=== PATIENT | female | born 1940 | race Caucasian/White ===

== ENCOUNTER 2016-12-02 14:08 | Emergency (ER) | payer MEDICARE ==
[~2016-12-02 14:08] MED LIST: ASPI325T32 PO; CALC-190 PO; CHOL100045 PO; ESCI5SOL PO; HYDR200T5 PO; LOV60 SUBQ; METH7.5T PO; MULT-666 PO; PRD1T PO; PRD5T PO; WARF5TAB7 PO
--- NOTE | 2016-12-02 14:10 | ED.REPORT ---
HPI-Trauma Minor / Fall Date of Service December 02, 2016 ED Provider: Dr. 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 Pt did not lose consciousness and claims that, "nothing hurts except for her arm." When medics arrived on scene pt was awake and calm, sitting on the ground , and holding her arm in place. She was able to stand and ambulate on scene. She denies dizziness, weakness, changes in speech, nausea, vomiting, visual change, head pain, and headache. Pt is on Coumadin. Nursing Notes Stated Complaint: GROUND LEVEL FALL Nursing Notes Reviewed: Yes Allergies: Coded Allergies: citalopram (Verified Allergy, Severe, Hallucinations, 06/09/16) oxycodone (Verified Allergy, Severe, vomiting, 06/09/16) Scheduled Aspirin (Aspirin) 325 Mg Tablet 81 MG PO DAILY Calcium Carb&Cit/Mag12/Vit D3 (Calcium 500 mg Tablet) 1 Each Tablet 1 EACH PO DAILY Cholecalciferol (Vitamin D3) (Vitamin D) 1,000 Unit Capsule 1,000 UNIT PO DAILY Enoxaparin (Lovenox) 60 Mg/0.6 Ml Syringe 60 MG SUBQ Q12 Escitalopram Oxalate (Lexapro) 5 Mg/5 Ml Solution 10 MG PO DAILY Hydroxychloroquine Sulfate (Hydroxychloroquine Sulfate) 200 Mg Tablet 200 MG PO BID Methotrexate Sodium (Trexall) 7.5 Mg Tablet 7.5 MG PO WEEKLY Multivitamin (Once Daily) 1 Each Tablet 1 EACH PO DAILY PredniSONE (PredniSONE) 1 Mg Tab 2 MG PO HS Prednisone (PredniSONE) 5 Mg Tab 5 MG PO QAM Warfarin Sodium (Warfarin Sodium) 5 Mg Tablet 5 MG PO DAILY Scheduled PRN Hydrocodone-Acetaminophen 5-325 mg (Hydrocodone-Acetaminophen 5-325 mg) 1 Each Tablet 1 TABLET PO Q4H PRN PRN For Pain General Time Seen by MD: 14:09 Chief Complaint Fall Hx Obtained From: Patient, EMS Arrived By: Ambulance Onset Occurred: Just prior to arrival Symptom Duration: Since onset Caused by: Accidental, Fall on ground Location: Shoulder right Quality: Painful Severity: Current: Moderate Recent Healthcare: No recent doctor visit, No recent hospitalization Similar Sx Previous: No Past Medical History Past Medical History DVT Rhematoid arthritis stroke Smoking History Unknown if Ever Smoker Social History Alcohol Use: Denies alcohol use Drug Use: Denies drug use Other Social History: Good social support, Local resident Ambulatory Status Independent Review of Systems Musculoskeletal: Reports: Extremity pain (right arm ), Extremity swelling ( right arm), Joint pain (right shoulder ), Joint swelling (right shoulder ) Neurologic: Denies: Change LOC, Dizziness, Headache, Lightheaded, Numbness, Problem walking, Slurred speech, Syncope, Weakness Complete sys rev & neg: except as marked. GI: Denies: Nausea Physical Exam Initial Vital Signs Vital Signs (First) Date Time Temp Pulse Resp B/P Pulse Ox O2 Delivery O2 Flow Rate FiO2 12/02/16 16:41 87 19 116/53 95 Room Air reviewed Initial VS: Reviewed ENT: Mucous membranes moist, Conjunctiva normal, No scleral icterus Respiratory: Breath sounds normal, Clear to auscultation, No respiratory distress Cardiovascular: Regular rate & rhythm, Heart sounds normal, Intact distal pulses Abdomen / GI: Soft, Non-tender, No guarding, No rebound, No distention Back: No CVA tenderness Lymphatic: No lymphadenopathy Neurologic: Alert, Oriented Psychiatric: Mood/affect normal, Behavior normal General/Constitutional: Awake, Alert, Cooperative Neck: Supple, No meningismus Head / Eyes: Normocephalic, PERRL 2cm hematoma anterior scalp 1cm superficial abrasion to the forehead superficial abrasion to her nose Right Shoulder: Positive: Deformity present right upper extremity shoulder deformity Interpretation & Diagnostics Lab Results Interpretation Result Diagram: 12/02/16 1400 Test 12/02/16 14:00 12/02/16 14:11 White Blood Count 6.2th/mm3 (3.8-10.1) Red Blood Count 3.60mil/mm3 (3.90-5.20) Hemoglobin 12.2g/dL (12.0-15.6) Hematocrit 37.9% (35.0-46.0) Mean Corpuscular Volume 105.3fL (81-100) Mean Corpuscular Hemoglobin 33.9pg (27.0-35.0) Mean Corpuscular Hemoglobin Concent 32.2% (32.0-37.0) Red Cell Distribution Width 14.6% (12.3-15.4) Platelet Count 235bil/L (150-400) Neutrophils (%) (Auto) 77.1% (40-74) Lymphocytes (%) (Auto) 15.9% (14-46) Monocytes (%) (Auto) 6.0% (4-12) Eosinophils (%) (Auto) 0.2% (0-5) Basophils (%) (Auto) 0.5% (0-3) Prothrombin Time 30.2sec (8.1-12.5) Prothromb Time International Ratio 2.76ratio ECG Interpretation ECG Interpretation: t-wave inversions isolated to V3 Time: 15:00 Interpreted by: ED physician Normal ECG Interpretation: Normal sinus rhythm (rate 85) X-Ray Chest Interpretation Chest Xray Interpretation: IMPRESSION: 1. Dislocated right humeral neck fracture. 2. Appearance of opacification in the right base is suspected to be artifactual secondary to overlying soft tissues secondary to rotation. If this is of clinical concern, repeat study is recommended, as effusion, consolidation or other abnormality within the lungs cannot be excluded. Dictated by: Hattie Villa M.D. on 12/02/2016 at 14:34 Approved by: Hattie Villa M.D. on 12/02/2016 at 14:37 View: Portable Interpretation / Wet Read by: Interpret - Radiologist X-Ray Interpretation Xray Interpretation: HUMERUS X-RAY IMPRESSION: 1. Displaced and angulated right humeral neck fracture of indeterminate acuity, with callus formation noted. 2. Peripheral groundglass opacities in the right lung are nonspecific and may represent pulmonary contusions in the context of trauma. Dictated by: Alphonso Rodlan M.D. on 12/02/2016 at 13:35 Approved by: Alphonso Roldan M.D. on 12/02/2016 at 13:45 X-Ray Ordered: Hand right CT Head Interpretation IMPRESSION: 1. No acute intracranial normalities. No intracranial bleed. 2. Cerebral volume loss and chronic microvascular ischemic changes. Dictated by: Cee House M.D. on 12/02/2016 at 15:00 Approved by: Cee House M.D. on 12/02/2016 at 15:03 Study: Head CT no contrast Interpretation / Wet Read by: Interpret - Radiologist Re-Eval/Medical Decision Med Decision/Clinical Course 76-year-old female with mechanical ground-level fall on Coumadin hitting head and right arm. She has a right proximal humerus fracture. Her right upper extremity is neurovascularly intact. CT head with no acute pathology. Her labs are stable. Discussed with orthopedics and they recommended sling and follow-up with them in 1 week. Sling was placed she remained neurovascularly intact right upper extremity. Her neurological exam was normal. She will be discharged home with return precautions if any weakness numbness tingling right upper extremity, worsening pain, nausea vomiting, worsening headache, confusion, any other new or worsening pain. Re-Evaluation/Progress : Time of Eval: 15:10 Re-Evaluation/Progress Note: Pt rechecked. Informed pt of x-ray results and fractured humerus. Plan for sling, discharge, and follow up with orthopedics in a week. Pt understands and agrees with plan. F/U and RTER warnings given. All questions addressed. Consultation : Referral / Consult Name: Umair Mckoy DO Consulted With: Orthopedic Call Returned at: 14:32 Real Estate Acquisition Analyst: Agrees with eval, Agrees with plan Note: Case discussed with orthopedics. Dr. Mckoy said to not attempt a reduction and follow up with orthopedics in one week as an outpatient. Wear the sling continuously. The pt should continue taking her coumadin. Pt understands and agrees with plan. F/U and RTER warnings given. All questions addressed. Counseled Regarding: Diagnosis, Lab results, Need for follow-up, When/why to return to ED Discharge & Departure Impression: Primary Impression: Head trauma Encounter type: initial encounter Qualified Code: S09.90XA - Unspecified injury of head, initial encounter Additional Impression: Humerus fracture Encounter type: initial encounter Humerus Location: proximal Fracture type : closed Fracture morphology: unspecified fracture morphology Laterality: right Qualified Code: S42.201A - Unspecified fracture of upper end of right humerus, initial encounter for closed fracture Disposition: Home Discharge Condition All VS Reviewed: Yes Condition: Stable Patient Instructions: Proximal Humerus Fracture (ED) Additional Instructions: Thank you for entrusting us with your care today. You have fractured your humerus. I have talked to with Dr. Umair Mckoy in orthopedics and he advises that you return home and make a follow up appointment in one week. Keep the sling loose enough that your arm is hanging down at all times. Do not hesitate to return to the Emergency Department for any right upper extremity weakness, numbness, tingling, shortness of breath, lightheadedness, dizziness, vomiting, difficulty speaking or swallowing, worsening headache or pain. I hope your recovery moves swiftly. Enjoy the sunshine today! Referrals: Sabiha Lane (PCP) Scribe Attestation Portion of this note were transcribed by Rosa Goodwin. I, Dr. Joseph, personally performed the history, physical exam, and medical decision-making: I reviewed and confirmed the accuracy for the information in the transcribed note. Signed by: darwin Hewitt, 12/02/16 1600 copies to: Sabiha Lane Ben M MD December 02, 2016 14:10 Rosa Goodwin December 02, 2016 14:19
[2016-12-02] MEDS ORDERED: TdaP Vaccine 0.5 mL Inj IM ONE (14:20)
[2016-12-02 14:28] LABS: BASOPHILS % (AUTO) 0.5 % (0-3); EOSINOPHILS % (AUTO) 0.2 % (0-5); Mean Corpuscular Hemoglobin 33.9 pg (27.0-35.0); Mean Corpuscular Volume 105.3 fL (81-100); NEUTROPHILS % (AUTO) 77.1 % (40-74); Platelet Count 235 bil/L (150-400)
--- NOTE | 2016-12-02 14:38 | DRSVH ---
PROCEDURE: X-RAY CHEST ONE VIEW, PORTABLE ([id number]) INDICATIONS: trauma TECHNIQUE: One view of the chest was acquired. COMPARISON: [facility], CR, XR HUMERUS 2VW RT, 12/02/2016, 14:07. FINDINGS: Surgical changes and devices: None. Lungs and pleura: The patient is significantly rotated, with an appearance of opacification in the ri ght base. Mediastinum: Mediastinal contours appear normal. Heart size is normal. Bones and chest wall: No suspicious bony lesions. Overlying soft tissues appear unremarkable. Ther e is a dislocated right humeral neck fracture. Distal clavicles are poorly evaluated secondary to ove rlying material. IMPRESSION: 1. Dislocated right humeral neck fracture. 2. Appearance of opacification in the right base is suspected to be artifactual secondary to overlyi ng soft tissues secondary to rotation. If this is of clinical concern, repeat study is recommended, a s effusion, consolidation or other abnormality within the lungs cannot be excluded. Dictated by: Hattie Villa M.D. on 12/02/2016 at 14:34 Approved by: Hattie Villa M.D. on 12/02/2016 at 14:37
[2016-12-02] MEDS: HYDROmorphone 1 mg/mL Inj IVPUSH PRN ×2 (14:40→15:30)
--- NOTE | 2016-12-02 14:47 | DRSVH ---
PROCEDURE: X-RAY RIGHT HUMERUS, MINIMUM TWO VIEWS ([id number]) INDICATIONS: trauma TECHNIQUE: 3 views of the humerus were acquired. COMPARISON: None. FINDINGS: Bones: There is a right humeral neck fracture with medial displacement of the distal component as wel l as mild impaction and lateral angulation. There is some callus formation demonstrated. Visualized ribs appear intact. Soft tissues: There are peripheral groundglass opacities in the right lung with a basilar predominan ce. IMPRESSION: 1. Displaced and angulated right humeral neck fracture of indeterminate acuity, with callus formatio n noted. 2. Peripheral groundglass opacities in the right lung are nonspecific and may represent pulmonary co ntusions in the context of trauma. Dictated by: Alphonso Roldan M.D. on 12/02/2016 at 13:35 Approved by: Alphonso Roldan M.D. on 12/02/2016 at 13:45
[2016-12-02 14:55] LABS: INR 2.76 ratio
--- NOTE | 2016-12-02 15:04 | DRSVH ---
PROCEDURE: CT BRAIN WITHOUT CONTRAST ([id number]) INDICATIONS: head trauma on coumadin TECHNIQUE: Noncontrast 4.5 mm thick angled axial sections acquired from the foramen magnum to the vertex, with c oronal reformats. COMPARISON: None. FINDINGS: Image quality: Excellent. CSF spaces: Basal cisterns are patent. No extra-axial fluid collections. The ventricles are symmet mariaa in size and shape. Brain: No intracranial bleeds or masses. There is moderate cerebral volume loss for age, with resul tant ventricular and sulcal prominence. There are periventricular and deep white matter chronic smal l vessel ischemic changes. Suspect old infarct in the left valdez radiata. There is intracranial inte rnal carotid artery atherosclerosis. Skull and face: Calvarium and visualized facial bones appear intact, without suspicious lesions. Sinuses: Visualized sinuses and mastoids are clear. IMPRESSION: 1. No acute intracranial abnormalities. No intracranial bleed. 2. Cerebral volume loss and chronic microvascular ischemic changes. Dictated by: Cee House M.D. on 12/02/2016 at 15:00 Approved by: Cee House M.D. on 12/02/2016 at 15:03
[2016-12-02] MEDS ORDERED: HYDR-4003 PO (15:18)
[2016-12-02 16:41] VITALS: BP 116/53; PULSE 87; RESP 19; O2SAT 95
[2016-12-05] MEDS ORDERED: ONDA4TAB6 PO (09:47)
[2016-12-05] MEDS ORDERED: ESCI10TA3 PO (09:47)
[2016-12-05] MEDS ORDERED: HYDR-3740 PO (09:47)
[2016-12-05] MEDS ORDERED: CALC-51 PO (09:47)
== END 2016-12-02 16:44 | disposition home or self-care (01) ==
LOC: SED 14:08
DX: S00.03XA Contusion of scalp, initial encounter (principal); S42.291A Other displaced fracture of upper end of right humerus, initial encounter for closed fracture; S00.81XA Abrasion of other part of head, initial encounter; S00.31XA Abrasion of nose, initial encounter; W01.10XA Fall on same level from slipping, tripping and stumbling with subsequent striking against unspecified object, initial encounter; Y92.512 Supermarket, store or market as the place of occurrence of the external cause; Y93.89 Activity, other specified; Y99.8 Other external cause status; Z86.718 Personal history of other venous thrombosis and embolism; Z86.73 Personal history of transient ischemic attack (TIA), and cerebral infarction without residual deficits; Z79.01 Long term (current) use of anticoagulants; Z79.82 Long term (current) use of aspirin; Z23 Encounter for immunization; Z88.8 Allergy status to other drugs, medicaments and biological substances; Z88.5 Allergy status to narcotic agent
CPT/HCPCS: 36415; 70450; 71010; 73060; 85025; 85610; 90471; 90715; 90791; 93005; 96374; 96376; 99285; J1170

== ENCOUNTER 2016-12-10 10:37 | Day surgery (SDC) | payer MEDICARE ==
[~2016-12-10] VITALS: Ht 152.4 cm; Wt 56.6 kg
[2016-12-10] VITALS (9 sets, daily range): BP systolic 99–134; BP diastolic 51–76; PULSE 84–93; RESP 16–23; O2SAT 88–100
[~2016-12-10 10:37] MED LIST changes: -ASPI325T32 PO; -CALC-190 PO; +CALC-51 PO; +CeFAZolin Inj 2 GM in IV Premix 1 EACH IV ONE; +ESCI10TA3 PO; -ESCI5SOL PO; +HYDR-3740 PO; -LOV60 SUBQ; +Lactated Ringer's 1,000 ML IV ONE; +ONDA4TAB6 PO; -PRD1T PO; -PRD5T PO
[2016-12-10] MEDS ORDERED: CeFAZolin Inj 2 gm / 50mL D5W IV ONE (10:48)
[2016-12-10] MEDS ORDERED: Lactated Ringer's 1,000 ML IV ONE (11:00)
[2016-12-10] MEDS ORDERED: fentaNYL-PF 50 mCg/mL 2 mL Inj ONE ×2 (11:18→16:22)
[2016-12-10] MEDS ORDERED: PRD5T PO (11:34)
[2016-12-10] MEDS ORDERED: PRD1T PO (11:34)
[2016-12-10 12:29] LABS: INR 1.01 ratio
--- NOTE | 2016-12-10 13:31 | PCM.HPANE ---
Patient Data Date of Service: December 10, 2016 ([id number]) Surgeon Admitting Provider: Attending Provider:Umair Mckoy DO Primary Care Physician:Sabiha Lane Other Provider:Anibal Rodriguez Anesthesia Reason for Visit Right Proximal Humerus Fracture RIGHT PROXIMAL HUMERUS FRACTURE Ht/WT & BMI Height (Feet): 5 Height (Inches): 0 Weight (Kilograms): 60.328 Body Mass Index 26.00 Allergies Coded Allergies: citalopram (Verified Adverse Reaction, Severe, Hallucinations, 12/05/16) oxycodone (Verified Adverse Reaction, Severe, vomiting, 12/05/16) Past Anesthesia History Anesthesia History: Denies:: Abnormal Airway, Anesthesia Reactions, Difficult Intubation, Fam Anesthesia Reaction, Fam Malignant Hypertherm, Malignant Hyperthermia Diabetes History Hx Diabetes?: No MRSA MRSA: No Medications Blood Thinner: Coumadin Hypertension Medication: No Home Meds Incl Beta Lobo: No Active Scripts Warfarin Sodium 5 Mg Tablet5 Mg PO DAILY 30 Days Ref 0 Prov:Odin Miller PAC 06/09/16 Reported Medications PredniSONE 1 Mg Tab2 Mg PO HS Ref 0 12/10/16 Prednisone (PredniSONE)5 Mg Tab5 Mg PO DAILY Ref 0 12/10/16 Escitalopram Oxalate (Lexapro)10 Mg [id number] Mg PO DAILY 30 Days Ref 0 12/05/16 Calcium Carbonate/Vitamin D3 (Calcium 500 + Vit D 400 Tablet)1 Each Tablet1 Each PO DAILY 12/05/16 Ondansetron (Zofran)4 Mg Tablet4-8 Mg PO Q8H PRN For Nausea 12/05/16 Hydrocodone-Acetaminophen 10-325 mg 1 Each Tablet1 Tablet PO Q4H PRN For Pain Ref 0 12/05/16 Cholecalciferol (Vitamin D3) (Vitamin D)1,000 Unit Capsule1,000 Unit PO DAILY # 1 BOTTLE Ref 0 05/07/16 Methotrexate Sodium (Trexall)7.5 Mg Tablet7.5 Mg PO WEEKLY 05/07/16 Multivitamin (Once Daily)1 Each Tablet1 Each PO DAILY 05/07/16 Hydroxychloroquine Sulfate 200 Mg [id number] Mg PO BID #30 TABLET Ref 0 05/07/16 Discontinued Reported Medications Prednisone (PredniSONE)5 Mg Tab5 Mg PO QAM Ref 0 05/07/16 PredniSONE 1 Mg Tab2 Mg PO HS Ref 0 05/07/16 Escitalopram Oxalate (Lexapro)5 Mg/5 Ml [id number] Mg PO DAILY #1 BOTTLE Ref 0 05/07/16 Calcium Carb&Cit/Mag12/Vit D3 (Calcium 500 mg Tablet)1 Each Tablet1 Each PO DAILY 05/07/16 Aspirin 325 Mg [id number] Mg PO DAILY #1 BOTTLE 05/07/16 Discontinued Scripts Hydrocodone-Acetaminophen 5-325 mg 1 Each Tablet1 Tablet PO Q4H PRN For Pain # 20 TABLET Prov:Parker Joseph MD 12/02/16 Enoxaparin (Lovenox)60 Mg/0.6 Ml [id number] Mg SUBQ Q12 5 Days Ref 0 Prov:Odin Miller PAC 06/09/16 History History of ENT Problems?: Yes HEENT History: Positive for:: Cataracts Denies:: Abnormal Airway Difficult Intubation Hearing Problem Denture Type: None Teeth Condition: Within Normal Limits Hx of Heart Problems?: Yes Cardiovascular History: Positive for:: Hypertension Thrombophlebitis (HX DVT'S (RESULTANT CVA) LAST NOTED RUE) Denies:: AICD Abdominal Aortic Aneurism Atrial Fibrillation Cardiac Surgery Chest Pain Congestive Heart Failure Coronary Artery Disease Edema Heart Murmur (ECHO 09/2011 EF 55%) Irregular Heartbeat Pacemaker Peripheral Vascular Rheumatic Fever Valvular Heart Disease Other Cardiac History: HX IRON DEFICIENCY ANEMIA Hx of Respiratory Problem?: No Respiratory History: Denies:: Asthma COPD Chest Surgery Cough Dyspnea Emphysema Hemoptysis Oxygen Administration Pneumonia Pulmonary Embolism Tuberculosis Use of C-PAP Machine Use of Inhalers / NEBS Hx Neurologic Problems?: Yes Neurological History: Positive for:: CVA (1991 DVT ?R/T HORMONE THERAPY ANTICOAGULATION) Headaches Denies:: Alzheimer's Disease Dementia Dizziness Multiple Sclerosis Parkinson's Disease Peripheral Neuropathy Seizures TIA Other Neurological Pertinent: GLF-STRIKING HEAD/NO LOC Hx of GI Problems?: Yes Gastrointestinal History: Denies:: Cirrhosis Diverticulitis Gall Bladder Disease Gastroesphageal Reflux Gastrointestinal Bleeding Heartburn Hepatitis Hiatal Hernia Liver Disease Rectal Bleeding Other GI Pertinent History: HX PARTIAL SBO Hx of Problems?: Yes Genitourinary History: Denies:: HX of Hemodialysis Kidney Stones Urinary Tract Infection HX of Peritoneal Dialysis: No Other Pertinent History: S/P CYSTO, INTERNAL URETHROTOMY Female Hx: Denies:: Currently Endometriosis Pelvic Inflammatory Problems with Breasts? Skin History: Positive for:: History Skin Disorders? (DERMATOFIBROSARCOMA- NAILS) Pressure Ulcers (HX B/L LL ULCERS S/P DEBRIDEMENT CHRONIC LT LEG ULCER ) Hx Musculoskeletal Problems?: Yes Musculoskeletal History: Positive for:: Musculoskeletal Trauma (S/P ORIF 5TH RT TOE RT PROXIMAL HUMERUS FX=CURRENT PROBLEM) Rheumatoid Arthritis Denies:: Back Injury Degenerative Joint Fibromyalgia Joint Replacement Myasthenia Gravis Osteoarthritis (OSTEOPOROSIS) Systemic Lupus Hx of Psycho/Social Problems?: Yes Psycho Social History: Positive for:: Anxiety Denies:: Bipolar Disorder Hx Depression Suicide Attempt Hx Surgeries?: Yes (HYST,LUMBAR FUSION,BUNIONECTOMY,ORIF 5TH RT TOE,CYSTO/ URETHROYOMY,LLE ULCER) Hx Any Other Health Problems?: Yes Other History: Positive for:: Cancer (DERMATOFIBROSARCOMA-NAILS) Hospitalization (multiple minor events) Denies:: Endocrine Disease Thyroid Disease History Blood Transfusions: Denies:: Accept Blood Products? Blood Transfuse Reaction Blood Transfusions Hx Diabetes: No Hx Alcohol Use: NoHx Substance Use: No Smoking Status: Unknown if Ever Smoker Have You Smoked inLast 12 mo: No Stop/Bang S-Snoring: Do You Snore Loudly: No T-Tired: feel tired, fatigued: No O-Obsered: Observed not breath: No P-Blood Pressure: treated: Yes B- Body Mass Index > 35 kg/m2: No A- Age over 50: Yes N- Neck Large Circumference: No G- Gender Male: No GEORGIE Total Score: 2 Risk Assessment Category Category 1A: Patient has history of documented sleep apnea, and HAS NOT received any narcotic, sedative or anesthesia administration during this stay. Category 1B: Patient has history of documented sleep apnea, and HAS received any narcotic , sedative or anesthesia administration during this stay Category 2: Patient has SUSPECTED Obstructive Sleep Apnea, and HAS received any narcotic , sedative or anesthesia administration during this stay. Category 3: Patient has SUSPECTED Obstructive Sleep Apnea and HAS NOT received narcotic, sedative or anesthesia administration during this stay. Category 4: Outpatient in Procedural Areas with known sleep apnea or who screen positive for High Risk via the STOP/BANG questionnaire. Exam Exam Vital Signs Vital Signs Date Time Temp Pulse Resp B/P Pulse Ox O2 Delivery O2 Flow Rate FiO2 12/10/16 11:13 36.6 84 16 127/60 97 Room Air General Appearance: Alert, Oriented X3, Cooperative, Moderate Distress (Right arm pain) HEENT/AIRWAY: MP 2, Neck Movement (FROM), Mouth Opening (3 FBMO) Lungs: Clear to Auscultation, Normal Air Movement Heart: Exam Unremarkable, Regular Rate/Rhythm, No Murmurs/Rubs/Gallops Meds/Labs/Diagnostics Labs Test 12/10/16 11:57 Prothrombin Time 10.8sec (8.1-12.5) Prothromb Time International Ratio 1.01ratio Plan Impression Patient chart reviewed, patient interviewed and anesthestic plan with risks, benefits, and alternatives discussed, and informed consent obtained. NPO per Anesth. Guidelines: Yes ASA Physical Status: ASA3 Severe Disease (h/o CVA) Anesthetic Plan: GA, Regional Block Bene/Risks/Altern/Consents: Yes HP Complete Prior to Induction: Yes (Right supraclavicular block discussed, risks addressed, consent signed.) Umair Burrell MD December 10, 2016 13:31
[2016-12-10] MEDS ORDERED: Lactated Ringer's 500 ML IV PRN (13:32)
[2016-12-10] MEDS ORDERED: Lactated Ringer's 1,000 ML IV SCH (13:32)
[2016-12-10] MEDS ORDERED: EPHEDrine Sulfate 50 mg/mL Inj IVPUSH PRN (13:35)
[2016-12-10] MEDS ORDERED: Labetalol 5 mg/mL 4 mL Inj IV PRN (13:35)
[2016-12-10] MEDS ORDERED: Phenylephrine 10,000 mCg/mL Inj IVPUSH PRN (13:35)
[2016-12-10] MEDS ORDERED: fentaNYL-PF 50 mCg/mL 2 mL Inj IVPUSH PRN (13:35)
[2016-12-10] MEDS ORDERED: Atropine 0.4 mg/mL Inj IVPUSH PRN (13:35)
[2016-12-10] MEDS ORDERED: MetoCLOpramide 5 mg/mL 2 mL Inj IVPUSH PRN (13:35)
[2016-12-10] MEDS ORDERED: Ondansetron 2 mg/mL 2 mL Inj IVPUSH PRN ×2 (13:35→15:20)
[2016-12-10] MEDS ORDERED: Lidocaine 2%-Epi 1:100,000 20 mL Inj INFILTRATE ONE (13:41)
[2016-12-10] MEDS ORDERED: Acetaminophen IV 1,000 MG in IV Premix 1 EACH IV ONE (15:20)
[2016-12-10] MEDS ORDERED: Magnesium Hydroxide 10 mL Oral Concentration PO PRN (15:20)
[2016-12-10] MEDS ORDERED: Polyethylene Glycol (PEG) 17 Gm Powder PO PRN (15:20)
[2016-12-10] MEDS ORDERED: diphenhydrAMINE 25 mg Capsule PO PRN (15:20)
--- NOTE | 2016-12-10 16:00 | OP ---
[address] [address] OPERATIVE REPORT PATIENT: PARISH LOZANO : 1940 MR#: [id number] ADMIT: 12/10/2016 JOB ID: [id number] DATE OF SURGERY: 12/10/2016 PREOPERATIVE DIAGNOSIS(ES): Right proximal humerus fracture. POSTOPERATIVE DIAGNOSIS(ES): Right proximal humerus fracture. PROCEDURE: Right proximal humerus open reduction and internal fixation. SURGEON: Umair Mckoy D.O. ASSISTING: Rita Yap PA-C INDICATIONS: The patient is a 76-year-old female who fell onto a concrete page at [employer] sustaining a right proximal humerus fracture with significant displacement. We discussed treatment options for this and she wished to proceed with a right proximal humerus open reduction and internal fixation. We discussed risks, benefits, and possible complications of surgery including, but not limited to injury to nerves and vessels, infection, bleeding, incomplete relief of symptoms, stiffness, need for additional procedures. The patient had good understanding. All questions were answered. She wished to proceed. A retail administrative assistant was required for the successful completion of this procedure. PROCEDURE IN DETAIL: The patient was brought to the operating room. She was given a preoperative antibiotic and general anesthetic as well as interscalene block. The right upper extremity was sterilely prepped and draped. An incision was made centered over the coracoid process for deltopectoral approach. Dissection was carefully carried through to the subcutaneous tissue. Electrocautery was used for hemostasis. The deltopectoral interval was identified and blunt dissection was used to open up the space. Then, a Hohmann retractor was placed over the humeral head. The conjoined tendon was identified and the Kobel retractor was placed. The upper 25% of the pectoralis was released in order to gain exposure and the fracture was encountered. The wound was irrigated and debrided. I did not wish to disturb the fracture too much and placed a stay suture into the rotator cuff in order to facilitate movement of the cuff and then manually manipulated the fracture in order to affect reduction. She was noted to have some bleeding in the posterior distal aspect of the wound in the arm and I explored this briefly. However, it was very close to the axillary nerve and I was concerned by this and, therefore, packed this area of bleeding with some Surgicel and then continued with the case. Placed a two hole Synthes proximal humerus locking plate, secured this to the proximal humerus making sure to have proper orientation with biplane fluoroscopy. Once I had secured this to the head and was happy with the position and placed a couple of locking screws into the head, I then worked to reduce the shaft to the head fragment. The shaft was secured with two 35 cortex screws as well as a locking screw in order to get good reduction. The remainder of the head screws were then placed making sure that they were unicortical and did not enter the joint space. Biplane fluoroscopy was used to confirm reduction which was acceptable. The wound was then irrigated. I then added some #2 FiberWire sutures to repair the rotator cuff to the superior holes of the plate to add additional fixation. I considered doing a biceps tenodesis but did not wish to compromise the blood supply in any way further then it was. Therefore, I decided to leave the biceps intact. The wound was then irrigated and closed with interrupted 2-0 Vicryl for the deep layers, 3-0 for the subcu and the skin was closed with interrupted 4-0 nylon mattress sutures. Sterile dressings were applied. Patient tolerated the procedure well. Blood loss was 300 cc. POSTOPERATIVE PROTOCOL: Have the patient maintain her arm sling for six weeks. She may begin range of motion of her wrist, fingers, hand and elbow to some degree and remove the dressing in three or four days. We will have her resume her Coumadin for DVT prophylaxis as well as a dose of Lovenox. [facility]
[2016-12-10] MEDS ORDERED: Phenylephrine/NS 100 mCg/mL 10 mL Syringe IVPUSH ONE (16:22)
[2016-12-10] MEDS ORDERED: Rocuronium 10 mg/mL 5 mL Inj ONE (16:22)
[2016-12-10] MEDS ORDERED: Propofol 10,000 mCg/mL 20 mL Inj ONE (16:22)
[2016-12-10] MEDS ORDERED: Ondansetron 2 mg/mL 2 mL Inj ONE (16:22)
[2016-12-10] MEDS ORDERED: MetoCLOpramide 5 mg/mL 2 mL Inj ONE (16:22)
[2016-12-10] MEDS: Sodium Chloride LOK Flush 10 mL Syringe IV SCH (16:30)
[2016-12-10] MEDS ORDERED: HYDROmorphone 0.5 mg/0.5 mL iSecure Syringe IVPUSH PRN (16:30)
[2016-12-10] MEDS: 0.9% Sodium Chloride 1,000 ML IV SCH (16:32)
--- NOTE | 2016-12-10 17:47 | NUR ---
Denise Oliva DO to confirm keep SP02 88-92% and provide supplemental oxygen as needed.
--- NOTE | 2016-12-10 18:54 | PCM.ANEP1 ---
Post Anesthesia PACU Phase 1 Assessment Vital Signs Vital Signs Date Time Temp Pulse Resp B/P Pulse Ox O2 Delivery O2 Flow Rate FiO2 12/10/16 16:24 Supplement Oxygen 12/10/16 16:10 36.4 93 16 120/74 99 Nasal Cannula 2.00 12/10/16 15:52 93 18 114/66 97 Nasal Cannula 3 12/10/16 15:46 90 22 117/51 95 Nasal Cannula 3 12/10/16 15:38 89 22 110/52 88 Room Air 12/10/16 15:30 86 23 110/55 100 Simple Mask 10 12/10/16 15:25 86 23 132/58 100 Simple Mask 10 12/10/16 15:21 36.5 87 23 134/76 100 Simple Mask 10 12/10/16 11:13 36.6 84 16 127/60 97 Room Air Anesthetic Administered: GA Level of Alertness: Awake, talking HERNANDEZ's with Equal Strength: Yes Pain: No Nausea or Vomiting: No CV Function & Hydration Stable: Yes Airway Device: Oxygen Delivery: Room Air Lungs: Clear to Auscultation, Normal Air Movement Dermatome Level: Full Sensation PACU Phase 2 Assessment Complications: No Follow up Care: N/A Patient Instructions Provided: N/A Umair Burrell MD December 10, 2016 18:54
[2016-12-10] MEDS ORDERED: predniSONE 1 mg Tablet PO SCH (21:00)
[2016-12-10] MEDS: Hydroxychloroqine 200 mg Tablet PO SCH (21:21)
[2016-12-10] MEDS: Senna-Docusate 8.6-50 mg Tablet PO SCH (21:22)
[2016-12-10] MEDS: HYDROcodone-APAP 7.5-325 mg Tablet PO PRN (21:22)
[2016-12-10] MEDS: CeFAZolin Inj 2 GM in IV Premix 1 EACH IV SCH (21:26)
[2016-12-10 23:53] LABS: APPEARANCE,URINE CLEAR (CLEAR,HAZY); COLOR,URINE YELLOW (YELLOW); OCCULT BLOOD,URINE TRACE (NEGATIVE); PH,URINE 5.5 (5.0-8.0); UROBILINOGEN,URINE NORMAL (NORMAL)
[2016-12-11] MEDS: Sodium Chloride LOK Flush 10 mL Syringe IV SCH ×2 (00:30→08:02)
[2016-12-11 00:55] VITALS: BP 110/64; PULSE 69; RESP 18; O2SAT 100
[2016-12-11] MEDS: 0.9% Sodium Chloride 1,000 ML IV SCH (01:17)
[2016-12-11] MEDS: HYDROcodone-APAP 7.5-325 mg Tablet PO PRN ×4 (01:18→09:54)
[2016-12-11] MEDS: CeFAZolin Inj 2 GM in IV Premix 1 EACH IV SCH (04:41)
--- NOTE | 2016-12-11 04:51 | NUR ---
Activity/Pain Pt reports pain 5/10, 7/10. Rec'd PRN pain meds with + effects. Pt with sling to right arm, tolerating well. Neuro's intact, numbness/tingling has resolved. Pt is 1 person SBA to BR and has steady gait. Tolerating PO fluids and solids, IV converted to SL.
[2016-12-11 05:04] VITALS: BP 99/60; PULSE 70; RESP 16; O2SAT 91
[2016-12-11] MEDS: hydrOXYzine Pamoate 25 mg Capsule PO PRN ×2 (05:17→09:55)
[2016-12-11 05:53] LABS: BASOPHILS % (AUTO) 0.1 % (0-3); EOSINOPHILS % (AUTO) 0 % (0-5); MONOCYTES % (AUTO) 6.1 % (4-12); Mean Corpuscular Hemoglobin 33.7 pg (27.0-35.0); Mean Corpuscular Volume 107.2 fL (81-100); NEUTROPHILS % (AUTO) 87.7 % (40-74); Platelet Count 242 bil/L (150-400)
[2016-12-11 07:57] VITALS: BP 111/77; PULSE 68; RESP 18; O2SAT 100
[2016-12-11] MEDS ORDERED: Calcium Carbonate (Oyster Shell) 500 mg Tablet PO SCH (08:00)
[2016-12-11] MEDS: Senna-Docusate 8.6-50 mg Tablet PO SCH (08:00)
[2016-12-11] MEDS: Hydroxychloroqine 200 mg Tablet PO SCH (08:02)
--- NOTE | 2016-12-11 08:09 | PCM.PNORTH ---
Subjective Date of Service: December 11, 2016 Visit Information: Reason for Visit Right Proximal Humerus Fracture Surgery/Surgery Date R HUMERUS ORIF 12/10/16 Post-Op Day # 1 Date of Admission: December 10, 2016 at 16:21 Hospital Day # Subjective Patient reports pain is well controlled with hydrocodone. She denies any tingling or numbness. Her is at bedside. Postop General: No Shortness of Breath, No Chest Pain, Good Appetite Pain Management: PO Objective Exam Objective Patient is seen sitting up in bed. Her is at bedside Vital Signs and I/O Vital Sign - Last Date Time Temp Pulse Resp B/P Pulse Ox O2 Delivery O2 Flow Rate FiO2 12/11/16 07:57 36.7 68 18 111/77 100 Nasal Cannula 2.00 Intake and Output 12/10/16 12/10/16 12/11/16 Cumulative From/Thru 15:00 23:00 07:00 12/05/16 09:48 - 12/11/16 06:22 Intake Total 750 ml 525 ml 1528 ml 2803 ml Output Total 300 ml 1010 ml 1310 ml Balance 450 ml 525 ml 518 ml 1493 ml Intake Oral 300 ml 600 ml 900 ml IV Total 750 ml 225 ml 928 ml 1903 ml Output Urine Total 1010 ml 1010 ml Estimated Blood Loss 300 ml 300 ml # Voids 1 1 # Bowel Movements 0 0 Lab & Micro Results Laboratory Tests Test 12/10/16 11:57 12/10/16 23:17 12/11/16 05:00 Prothrombin Time 10.8sec (8.1-12.5) Prothromb Time International Ratio 1.01ratio Urine Color Yellow (YELLOW) Urine Appearance Clear (CLEAR,HAZY) Urine pH 5.5 (5.0-8.0) Urine Specific [place] 1.023 (1.003-1.035) Urine Protein Negativemg/dL (NEG,TRACE) Urine Glucose (UA) 100mg/dL (NEGATIVE) Urine Ketones 15mg/dL (NEGATIVE) Urine Occult Blood Trace (NEGATIVE) Urine Nitrite Negative (NEGATIVE) Urine Bilirubin Negative (NEGATIVE) Urine Urobilinogen Normalmg/dL (NORMAL) Urine Leukocyte Esterase Negative (NEGATIVE) Urine RBC 0-2/hpf (0-2) Urine WBC 0-5/hpf (0-5) Urine Epithelial Cells Moderate/hpf (NONE-MOD) Urine Crystals None seen (NONE SEEN) Urine Bacteria None/hpf (NONE-FEW) Urine Hyaline Casts None/lpf (NONE) Urine Granular Casts None seen (NONE SEEN) Urine Waxy Casts None seen (NONE SEEN) Urine Red Blood Cell Casts None seen (NONE SEEN) Urine White Blood Cell Casts None seen (NONE SEEN) Urine Mucus None seen (None Seen) Urine Trichomonas None seen (NONE SEEN) Urine Yeast None (NONE SEEN) Urine Culture Reflexed Not indicated White Blood Count 7.0th/mm3 (3.8-10.1) Red Blood Count 2.64mil/mm3 (3.90-5.20) Hemoglobin 8.9g/dL (12.0-15.6) Hematocrit 28.3% (35.0-46.0) Mean Corpuscular Volume 107.2fL (81-100) Mean Corpuscular Hemoglobin 33.7pg (27.0-35.0) Mean Corpuscular Hemoglobin Concent 31.4% (32.0-37.0) Red Cell Distribution Width 14.6% (12.3-15.4) Platelet Count 242bil/L (150-400) Neutrophils (%) (Auto) 87.7% (40-74) Lymphocytes (%) (Auto) 5.8% (14-46) Monocytes (%) (Auto) 6.1% (4-12) Eosinophils (%) (Auto) 0% (0-5) Basophils (%) (Auto) 0.1% (0-3) Sodium Level 139mEq/L (134-144) Potassium Level 4.8mEq/L (3.5-5.2) Chloride Level 103mEq/L (97-108) Carbon Dioxide Level 24mmol/L (18-29) Blood Urea Nitrogen 16mg/dL (8-27) Creatinine 0.49mg/dL (0.57-1.00) Estimat Glomerular Filtration Rate 175mL/min (>59) Glucose Level 138mg/dL (60-99) Calcium Level 8.3mg/dL (8.5-10.1) Result Diagram: 12/11/16 0500 12/11/16 0500 General Appearance: Alert, Oriented X3, Cooperative, No Acute Distress Extremities: Distal Pulses Palpable Postop Sensory Motor: Distal Motor Intact, Movement in Fingers SURGICAL WOUND : Wound Location/Description Right shoulder: Surgical dressing is clean, dry and intact. The down on the right shoulder is a little damp from a leaky ice bag. Patient is able to move all the fingers and wrist. Sensation is intact to light touch. She has her thumb hanging off the loop in the sling. Patient is instructed to avoid hanging her thumb in the loop as this will injure her thumb joint over the next 6 weeks. Activity: Ambulating Independently Catheters: None Assessment & Plan Impression POD #1 Right humerus ORIF Problems: Plan Weightbearing: Nonweightbearing right upper extremity Wear sling for the next 6 weeks Support right arm with pillow to help take pressure of the sling off the neck. Avoid using the thumb loop inside the sling as this will cause injury to the thumb joint due to the weight of the arm Activity: Patient may do gentle range of motion for the elbow, wrist and fingers PT/OT today for instruction in ROM, donning and doffing sling, ADL's DVT prophylaxis: Resume warfarin 5 mg per day. Lovenox 40 mg 1 dose today prior to discharge Dressing: Patient will change dressing on 12/14/2016 Showering: Patient may shower on Friday if there is no drainage present. Wound may be uncovered to shower. Pat dry and apply a new dressing. Follow-up in 2 weeks at [facility] with PATY for suture removal, and at [address] Mckoy with x-ray Pain Management: [place] 7.5 mg VTE Prophylaxis: Sub-Q Enoxaparin, Other (warfarin) Resuscitation Status: CPR: Attempt Resuscitation Rita Yap PA-C December 11, 2016 08:09 Rita Yap PA-C December 11, 2016 08:09
[2016-12-11] MEDS ORDERED: predniSONE 5 mg Tablet PO SCH (08:30)
--- NOTE | 2016-12-11 09:08 | PCM.DIORTH ---
Ortho Discharge Instruction Date of Service: December 11, 2016 Dates of Hospitalization Date of Hospital Admission 12/10/2016 Providers Admitting Physician: Primary Care Physician: Sabiha Lane Attending Physician: Umair Mckoy DO Activity Discharge Activity-General: Elevate & ice extremity (elevate by sitting up) Right Upper Extremity: Non-weight bearing Discharge Assist Device: Other (Sling) Dressing and Incisional Care Discharge Dressing Care: Keep dressing clean, dry & intact Discharge Hygiene: May shower (see instructions below), DO NOT soak incision under water (for 2 weeks), NO bathtub, hot tub or whirlpool (for 2 weeks) Additional Instructions Discharge Instructions Weightbearing: Nonweightbearing right upper extremity Wear sling for the next 6 weeks Support right arm with pillow to help take pressure of the sling off the neck. Avoid using the thumb loop inside the sling as this will cause injury to the thumb joint due to the weight of the arm The sling will tend to slide to the right. Grab it with the left hand, and pull around to the front of you. You want the right hand to be inside the sling Activity: Perform gentle range of motion for the elbow, wrist and fingers multiple times a day. No lifting, carrying, pushing, pulling or leaning on the right arm. Dressing: Patient will change dressing on 12/14/2016 Showering: Patient may shower on Friday if there is no drainage present. Wound may be uncovered to shower. Pat dry and apply a new dressing. Follow Up Plan Follow Up Plan Follow-up in 2 weeks at [facility] with PATY for suture removal, and at [address] Mckoy with x-ray Call your provider for: Fever, Chills, Shortness of breath, Vomitting, Drainage at incision (excessive or increasing), Wound redness, Increasing pain Rita Yap PA-C December 11, 2016 09:08
[2016-12-11] MEDS ORDERED: HYDR-3797 PO (09:11)
[2016-12-11] MEDS ORDERED: HYDR-3740 PO (09:11)
--- NOTE | 2016-12-11 09:24 | NUR ---
Evaluation completed. Please go to "Notes" then click on "Assessments and Notes" (bottom left corner of screen). Then select appropriate discipline tab on top of screen.
--- NOTE | 2016-12-11 10:17 | NUR ---
Social Work: Initial Assessment / Discharge Data: Pt is a 76 y/o female admitted for Right proximal humerus fracture. Pt's PCP is Dr Lane, pt's insurance is Medicare with [employer]. EMR reviewed. Readmit score not listed. DIESEL MACHINIST met with pt at bedside, role explained. D/C orders are in. Pt states she lives with a friend in [place] in a single story home where she uses no DME. Pt states she drives, has hx of HH, no hx of SNF, no LTC or VA benefits, and is not a caregiver. Ortho and PT have cleared pt for home. Pt declines any needs. No d/c planning needs at this time. DIESEL MACHINIST will continue to follow if needs arise. Assessment: Pt who is independent at baseline. Plan: Pt will d/c home via POV with family today. Pt declines any needs. No d/c planning needs at this time. DIESEL MACHINIST will continue to follow if needs arise. ZAIDA Biggs Addendum: 12/11/16 at 1020 by FERNANDA JEAN Amended: Links added.
--- NOTE | 2016-12-11 11:28 | NUR ---
Discharge Pt DC'ing home with her via private vehicle, all belongings with them. PT worked with her and she has been cleared to go home at this time. Detailed discussion was had with pt about proper sling placement, activity restrictions, showering, dressing change and pain management. Explained that she had been taking 7.5/325 Vicodin here and her home prescription was for 10/325s. Pt aware that 2 tablets with the Vistaril could cause respiratory depression or make her too drowsy/dizzy. All questions answered at this time.
== END 2016-12-11 11:38 | disposition home or self-care (01) ==
LOC: SAS 10:37 → OSC 16:21 → UNDOADMIN 16:21 → OSC 16:21 → SAS 12-11 11:38
PROVIDERS: ATTEND Orthopaedic Surgery
DX: S42.291A Other displaced fracture of upper end of right humerus, initial encounter for closed fracture (principal); W01.0XXA Fall on same level from slipping, tripping and stumbling without subsequent striking against object, initial encounter; Y93.01 Activity, walking, marching and hiking; Y92.89 Other specified places as the place of occurrence of the external cause; I10 Essential (primary) hypertension; M06.9 Rheumatoid arthritis, unspecified; M81.0 Age-related osteoporosis without current pathological fracture; Z86.73 Personal history of transient ischemic attack (TIA), and cerebral infarction without residual deficits; Z79.01 Long term (current) use of anticoagulants
CPT/HCPCS: 23615; 36415; 76001; 76942; 80048; 81000; 85025; 85610; 97162; C1713; G8978; G8979; G8980; J0690; J1650; J2250; J2370; J2405; J2765; J3010; J7030; J7120; J7512; Q0177